=== PATIENT | female | born 1995 | race Caucasian/White ===

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

== ENCOUNTER 2017-03-31 11:28 | Emergency (ER) | payer OTHER ==
[~2017-03-31] VITALS: Ht 165.1 cm; Wt 60.0 kg
--- NOTE | 2017-03-31 11:37 | PD ---
HPI . BA/acute psychosis, possibly drug induced Chief Complaint: BA/acute psychosis, possibly drug induced Time Seen by Provider: 11:36 Travel History International Travel<30 days: No Contact w/Intl Traveler<30days: No Traveled to known affect area: No History of Present Illness HPI 22-year-old female with a past medical history of drug-induced psychosis here reporting past medical history of bipolar disorder, depression and schizophrenia. She also tells me that she's had some periods of psychosis. Patient says that she does have a history of using drugs, however she has only recently use marijuana and tries to smoking daily if she can. Apparently patient was Kurtz acted she was found running in the streets screaming and yelling. Police report that she was combative. Patient tells me that she was running looking for her boyfriend. She denies any suicide or homicidal ideation. She has no specific complaints. Apparently she initially reported some chest pain to police officers, however here in the emergency department she tells me she feels fine. PFSH Past Medical History ADHD: No Autoimmune Disease: No Blood Disorders: No Bipolar Disorder: Yes Anxiety: Yes Depression: Yes Cancer: No Cardiovascular Problems: No Developmental Delay: No Diabetes: No Diminished Hearing: No Gastrointestinal Disorders: Yes (constipation ) Genitourinary: No Headaches: No Heparin Induced Thrombocytopen: No Musculoskeletal: No Neurologic: No Psychiatric: Yes (PTSD) Reproductive: No (ovarian cyst ) Respiratory: No Immunizations Current: No Migraines: Yes Schizophrenia: Yes Seizures: No Sickle Cell Disease: No Thyroid Disease: No Ulcer: No Menopausal: No : 0 Past Surgical History Other Surgery: No Social History Alcohol Use: Yes Tobacco Use: Yes Substance Use: Yes Allergies-Medications (Allergen,Severity, Reaction): Coded Allergies: No Known Allergies (Verified , 10/24/16) Reported Meds & Prescriptions Reported Meds & Active Scripts Active Reported Gabapentin 400 Mg Cap 400 Cap PO DAILY Review of Systems General / Constitutional: No: Fever Eyes: No: Visual changes HENT: No: Headaches Cardiovascular: No: Chest Pain or Discomfort Respiratory: No: Shortness of Breath Gastrointestinal: No: Abdominal Pain Genitourinary: No: Dysuria Musculoskeletal: No: Pain Skin: No Rash Neurologic: No: Weakness Psychiatric: Positive: Mood Disorder, No: Depression Endocrine: No: Polydipsia Hematologic/Lymphatic: No: Easy Bruising Physical Exam Narrative GENERAL: AAO x 3, no acute distress, disheveled appearance SKIN: Warm and dry. No visible rashes or bruising. HEAD: Normocephalic and atraumatic. EYES: No scleral icterus. No injection or drainage. EOM intact, PERRLA ENT: No nasal drainage noted. Mucous membranes pink. Airway patent. NECK: Supple, trachea midline. No JVD. CARDIOVASCULAR: Regular rate and rhythm without murmurs, gallops, or rubs. RESPIRATORY: Breath sounds equal bilaterally. No accessory muscle use. No rhonchi or rales. GASTROINTESTINAL: Abdomen soft, non-tender, nondistended. EXTREMITIES: No cyanosis or edema. BACK: No obvious deformity. NEURO: CN II-12 intact, certified alcohol drug counselor strength normal b/l, UE and LE 5/5, no focal deficits PSYCH: AAO x 3, calm now (ativan given prior to arrival) Data Data Last Documented VS Vital Signs Date Time Temp Pulse Resp B/P Pulse Ox O2 Delivery O2 Flow Rate FiO2 03/31/17 13:26 105 18 97/53 100 Room Air 03/31/17 11:57 98.7 Orders Complete Blood Count With Diff (03/31/17 11:42) Comprehensive Metabolic Panel (03/31/17 11:42) Thyroid Stimulating Hormone (03/31/17 11:42) Urinalysis - C+S If Indicated (03/31/17 11:42) Ed Urine Pregnancytest Poc (03/31/17 11:42) Electrocardiogram (03/31/17 11:42) Psych Screen (03/31/17 11:42) Drug Screen, Random Urine (03/31/17 11:42) Alcohol (Ethanol) (03/31/17 11:42) Salicylates (Aspirin) (03/31/17 11:42) Tylenol (Acetaminophen) (03/31/17 11:42) Sodium Chlor 0.9% 1000 Ml Inj (Ns 1000 M (03/31/17 12:00) Labs Laboratory Tests Test 03/31/17 11:45 White Blood Count 8.6 TH/MM3 Red Blood Count 3.39 MIL/MM3 Hemoglobin 10.7 GM/DL Hematocrit 31.1 % Mean Corpuscular Volume 92.0 FL Mean Corpuscular Hemoglobin 31.7 PG Mean Corpuscular Hemoglobin 34.4 % Concent Red Cell Distribution Width 13.6 % Platelet Count 294 TH/MM3 Mean Platelet Volume 8.3 FL Neutrophils (%) (Auto) 81.7 % Lymphocytes (%) (Auto) 11.0 % Monocytes (%) (Auto) 7.0 % Eosinophils (%) (Auto) 0.1 % Basophils (%) (Auto) 0.2 % Neutrophils # (Auto) 7.1 TH/MM3 Lymphocytes # (Auto) 0.9 TH/MM3 Monocytes # (Auto) 0.6 TH/MM3 Eosinophils # (Auto) 0.0 TH/MM3 Basophils # (Auto) 0.0 TH/MM3 CBC Comment DIFF FINAL Differential Comment Urine Color YELLOW Urine Turbidity HAZY Urine pH 5.5 Urine Specific [place] 1.028 Urine Protein 30 mg/dL Urine Glucose (UA) NEG mg/dL Urine Ketones TRACE mg/dL Urine Occult Blood NEG Urine Nitrite NEG Urine Bilirubin NEG Urine Urobilinogen LESS THAN 2.0 MG/DL Urine Leukocyte Esterase NEG Urine RBC LESS THAN 1 /hpf Urine WBC 3 /hpf Urine Squamous Epithelial 13 /hpf Cells Urine Transitional Epithelial <1 /hpf Cells Urine Bacteria RARE /hpf Urine Hyaline Casts 8 /lpf Urine Mucus MOD /lpf Microscopic Urinalysis Comment CULT NOT INDICATED Sodium Level 137 MEQ/L Potassium Level 4.6 MEQ/L Chloride Level 105 MEQ/L Carbon Dioxide Level 23.0 MEQ/L Anion Gap 9 MEQ/L Blood Urea Nitrogen 20 MG/DL Creatinine 0.70 MG/DL Estimat Glomerular Filtration 107 ML/MIN Rate Random Glucose 80 MG/DL Calcium Level 7.9 MG/DL Total Bilirubin 0.6 MG/DL Aspartate Amino Transf 65 U/L (AST/SGOT) Alanine Aminotransferase 55 U/L (ALT/SGPT) Alkaline Phosphatase 65 U/L Total Protein 7.1 GM/DL Albumin 3.2 GM/DL Thyroid Stimulating Hormone 1.430 uIU/ML 3rd Gen Salicylates Level LESS THAN 1.7 MG/DL Urine Opiates Screen NEG Acetaminophen Level LESS THAN 2.0 MCG/ML Urine Barbiturates Screen NEG Urine Amphetamines Screen POS Urine Benzodiazepines Screen NEG Urine Cocaine Screen NEG Urine Cannabinoids Screen POS Ethyl Alcohol Level LESS THAN 3 MG/DL MDM Medical Decision Making Medical Screen Exam Complete: Yes Emergency Medical Condition: Yes Medical Record Reviewed: Yes Differential Diagnosis Acute psychosis, drug-induced mood disorder, bipolar disorder, polysubstance abuse Narrative Course 22-year-old female here under Kurtz act due to what seems to be an acute psychotic episode out in public. Exam was done and is unremarkable except for some tachycardia. IV access was obtained. Patient was placed on continuous cardiac monitoring. She was given IV fluids and labs were ordered. Labs have been reviewed. She has been medically cleared. She is awaiting psych screen. Diagnosis Primary Impression: Drug-induced mood disorder Condition: Stable Maria Luisa Hunt Mar 31, 2017 11:37
[2017-03-31 11:57] VITALS: BP 115/76; PULSE 118; RESP 15; TEMP 98.7; O2SAT 100
[2017-03-31] MEDS ORDERED: SODIUM CHLOR 0.9% 1000 ML INJ 1,000 ML IV ONE (12:00)
--- NOTE | 2017-03-31 12:06 | PD ---
Data Data Last Documented VS Vital Signs Date Time Temp Pulse Resp B/P Pulse Ox O2 Delivery O2 Flow Rate FiO2 03/31/17 11:57 115 03/31/17 11:57 98.7 15 115/76 100 Room Air Orders Complete Blood Count With Diff (03/31/17 11:42) Comprehensive Metabolic Panel (03/31/17 11:42) Thyroid Stimulating Hormone (03/31/17 11:42) Urinalysis - C+S If Indicated (03/31/17 11:42) Ed Urine Pregnancytest Poc (03/31/17 11:42) Electrocardiogram (03/31/17 11:42) Psych Screen (03/31/17 11:42) Drug Screen, Random Urine (03/31/17 11:42) Alcohol (Ethanol) (03/31/17 11:42) Salicylates (Aspirin) (03/31/17 11:42) Tylenol (Acetaminophen) (03/31/17 11:42) Sodium Chlor 0.9% 1000 Ml Inj (Ns 1000 M (03/31/17 12:00) MDM Supervised Visit with PHIL: Yes Narrative Course The history, exam, and medical decision-making in the associated mid-level provider note were completed with my assistance. I reviewed and agree with the findings presented. I attest that I had a [id number] encounter with the patient on the same day, and personally performed and documented my assessment and findings in the medical record. *My assessment and Findings: 22 year-old woman, under a Kurtz act for bizarre altered mental status. She apparently is agitated and hostile. She is a history of polysubstance abuse of multiple similar presentations for psychotic behavior treated to illicit drug use. She received 2 mg of Ativan in route. She sedate now. We'll check labs, EKG, monitor. Reassess. Lobo Xiao MD Mar 31, 2017 12:06
[2017-03-31 12:08] LABS: AUTOMATED NEUTROPHIL # 7.1 TH/MM3 (1.8-7.7); BASOPHIL % 0.2 % (0.0-2.0); EOSINOPHIL % 0.1 % (0.0-4.0); HEMATOCRIT 31.1 % (35.0-46.0); HEMO FLAGS DIFF FINAL; LYMPHOCYTE # 0.9 TH/MM3 (1.0-4.8); MEAN CORPUSCULAR HEMOGLOBIN 31.7 PG (27.0-34.0); MEAN CORPUSCULAR HGB CONC 34.4 % (32.0-36.0); NEUT % 81.7 % (16.0-70.0); PLATELET COUNT 294 TH/MM3 (150-450); RED BLOOD COUNT 3.39 MIL/MM3 (4.00-5.30); RED CELL DISTRIBUTION WIDTH 13.6 % (11.6-17.2); WHITE BLOOD COUNT 8.6 TH/MM3 (4.0-11.0)
[2017-03-31 12:21] LABS: BACTERIA, URINE RARE /hpf; BLOOD, URINE NEG (NEG); GLUCOSE,URINE NEG (NEG); HYALINE CAST, URINE 8 /lpf (RARE); KETONE, URINE TRACE mg/dL (NEG); MUCUS URINE MOD /lpf (OCC); NITRITE,URINE NEG (NEG); PH, URINE 5.5 (5.0-8.5); SQUAMOUS EPITHELIAL CELL URINE 13 /hpf (0-5); TRANSITIONAL EPI CELLS, URINE <1 /hpf; URINE COLOR YELLOW (YELLW/STRAW)
[2017-03-31 12:22] LABS: COMMENT (UR) CULT NOT INDICATED; CULTURE IF INDICATED CULT NOT INDICATED
[2017-03-31 12:25] LABS: AMPHETAMINE, URINE POS (NEG); BARBITURATES, URINE NEG (NEG); COCAINE, URINE NEG (NEG)
[2017-03-31 12:35] LABS: ALKALINE PHOSPHATASE 65 U/L (45-117); TOTAL BILIRUBIN ADULT 0.6 MG/DL (0.2-1.0)
[2017-03-31 12:36] LABS: ALT (GPT) 55 U/L (9-42); ANION GAP 9 MEQ/L (5-15); AST (GOT) 65 U/L (16-38); BLOOD UREA NITROGEN 20 MG/DL (7-18); CHLORIDE 105 MEQ/L (98-107); GLOMERULAR FILTRATION RATE 107 ML/MIN (>89); SODIUM (NA) 137 MEQ/L (136-145)
[2017-03-31 12:46] LABS: ACETAMINOPHEN LESS THAN 2.0 MCG/ML (10.0-30.0); POTASSIUM 4.6 MEQ/L (3.5-5.1)
[2017-03-31 13:26] VITALS: BP 97/53; PULSE 105; RESP 18; O2SAT 100
[2017-03-31 14:17] VITALS: BP 90/55; PULSE 96; RESP 20; O2SAT 96
[2017-03-31 16:58] VITALS: BP 104/67; PULSE 88; RESP 16; O2SAT 99
[2017-03-31 18:01] VITALS: BP 98/56; PULSE 89; RESP 18
[2017-03-31 23:20] VITALS: BP 90/50; PULSE 16; PULSE 76; RESP 18
[2017-04-01 02:10] VITALS: BP 90/50; PULSE 76; RESP 18; TEMP 98.8; O2SAT 95
[2017-04-01 05:50] VITALS: BP 89/50; PULSE 81; RESP 16; TEMP 98.4; O2SAT 99
[2017-04-01 09:09] VITALS: BP 89/50; TEMP 98.4
--- NOTE | 2017-04-01 17:21 | EKG ---
Date Performed: 03/31/2017 Time Performed: 11:41:20 PTAGE: 22 years EKG: SINUS TACHYCARDIA ABNORMAL RHYTHM ECG Since PREVIOUS TRACING , no significant change noted PREVIOUS TRACIN10/24/2016 18.38 DOCTOR: Sixto Monroe Interpretating Date/Time 04/01/2017 17:18:47
== END 2017-04-01 09:18 ==
LOC: NEPE 11:28 → NEPJ 04-01 09:18
DX: Z02.89 Encounter for other administrative examinations (principal); F19.94 Other psychoactive substance use, unspecified with psychoactive substance-induced mood disorder; F10.10 Alcohol abuse, uncomplicated; F17.290 Nicotine dependence, other tobacco product, uncomplicated; R94.31 Abnormal electrocardiogram [ECG] [EKG]
CPT/HCPCS: 80053; 80307; 81001; 84443; 84703; 85025; 93005; 96360; 99285; J7030

== ENCOUNTER 2017-05-20 03:57 | Emergency (ER) | payer OTHER ==
[~2017-05-20] VITALS: Ht 162.6 cm; Wt 60.0 kg
[2017-05-20 04:15] VITALS: BP 135/68; PULSE 105; RESP 16; TEMP 98.5; O2SAT 100
--- NOTE | 2017-05-20 04:37 | PD ---
HPI Chief Complaint: Alcohol/Drug Intoxication Time Seen by Provider: 04:16 Travel History International Travel<30 days: No Contact w/Intl Traveler<30days: No Traveled to known affect area: No History of Present Illness HPI 22-year-old female with history of methamphetamine use, presents to the emergency department under a [place] act reevaluation. Patient was running through a dark street. She apparently did not answer the police officers questions appropriately in [place]. They brought her here under Wilson act. Patient states she does not know why she is here. She does not want to be here. She does report methamphetamine use today and every day. She denies any other acute medical needs. [facility] Past Medical History Medical History: Denies Significant Hx ADHD: No Autoimmune Disease: No Blood Disorders: No Bipolar Disorder: Yes Weight (Kg): 3 Anxiety: Yes Depression: Yes Cancer: No Cardiovascular Problems: No Developmental Delay: No Diabetes: No Diminished Hearing: No Gastrointestinal Disorders: Yes (constipation ) Genitourinary: No Headaches: No Heparin Induced Thrombocytopen: No Musculoskeletal: No Psychiatric: Yes (PTSD) Reproductive: No (ovarian cyst ) Respiratory: No Immunizations Current: No Migraines: Yes Schizophrenia: Yes Seizures: No Sickle Cell Disease: No Thyroid Disease: No Ulcer: No Tetanus Vaccination: < 5 Years Influenza Vaccination: No ?: Unknown Menopausal: No : 0 Para: 0 Past Surgical History Surgical History: No Previous Surgery Other Surgery: No Social History Alcohol Use: Yes (pt denies) Tobacco Use: Yes Substance Use: Yes (Meth, Marijuana, IVDA) Allergies-Medications (Allergen,Severity, Reaction): Coded Allergies: No Known Allergies (Verified , 10/24/16) Reported Meds & Prescriptions Reported Meds & Active Scripts Active No Active Prescriptions or Reported Medications Review of Systems Except as stated in HPI: all other systems reviewed are Neg Physical Exam Narrative GENERAL: Thin female patient, ambulatory, with bizarre affect, in no acute distress SKIN: Focused skin assessment warm/dry. Full scabbed lesions over the face and upper extremities. HEAD: Normocephalic. EYES: No scleral icterus. No injection or drainage. NECK: Supple, trachea midline. No JVD or lymphadenopathy. CARDIOVASCULAR: Elevated rate and rhythm without murmurs, gallops, or rubs. RESPIRATORY: Breath sounds equal bilaterally. No accessory muscle use. GASTROINTESTINAL: Abdomen soft, non-tender, nondistended. MUSCULOSKELETAL: No cyanosis, or edema. BACK: Nontender without obvious deformity. No CVA tenderness. Data Data Last Documented VS Vital Signs Date Time Temp Pulse Resp B/P (MAP) Pulse Ox O2 Delivery O2 Flow Rate FiO2 05/20/17 04:15 98.5 105 16 135/68 (90) 100 MDM Medical Decision Making Medical Screen Exam Complete: Yes Emergency Medical Condition: Yes Medical Record Reviewed: Yes Differential Diagnosis Substance abuse versus mood disorder versus personality disorder versus adjustment reaction disorder Narrative Course 22 year-old female presents to the emergency department under a Wilson act for evaluation. Patient appears without distress. She demonstrates behavior consistent with methamphetamine use. She'll be monitored with no acute changes , she'll be discharged. Patient's mother has been reached and she will not come and pick her up at this time. [id number] patient remained stable. She no longer wants to be here. She is ambulatory throughout the [facility] department. She is answering our questions appropriately. Patient is provided a bus pass and discharged at this time. Diagnosis Primary Impression: Polysubstance abuse Referrals: [facility] (Out patient) Additional Instructions: Stop using illegal drugs Seek assistance through a detox facility such as [facility] Return immediately to the emergency department with any acute worsening of symptoms Med/Other Pt SpecificInfo: No Change to Meds Scripts No Active Prescriptions or Reported Meds Disposition: 01 DISCHARGE HOME Condition: Stable BeeAmber mourapaloma RENDON May 20, 2017 04:37
== END 2017-05-20 06:08 | disposition home or self-care (01) ==
LOC: NEPD 03:57
DX: F19.10 Other psychoactive substance abuse, uncomplicated (principal)
CPT/HCPCS: 99281

== ENCOUNTER 2017-07-08 16:48 | Emergency (ER) | payer OTHER ==
[~2017-07-08] VITALS: Ht 157.5 cm; Wt 48.0 kg
[2017-07-08 17:01] VITALS: BP 134/87; PULSE 127; RESP 18; TEMP 99; O2SAT 98
--- NOTE | 2017-07-08 17:21 | PD ---
HPI Chief Complaint: psychiatric evaluation Time Seen by Provider: 17:13 Travel History International Travel<30 days: No Contact w/Intl Traveler<30days: No History of Present Illness HPI 22-year-old female presents to the emergency Department under Kurtz act by [place] [employer] for psychiatric evaluation. According to the Kurtz act, the patient has been making suicidal statements, stating she wants to burn down the house to be with her boyfriend who recently. The patient denies making any suicidal statements. She states she is not suicidal or homicidal. The patient is alert and oriented and answers all questions appropriately. She denies any alcohol or illicit drug use. She smokes half pack of cigarettes daily. She reports no chronic medical problems and takes no prescribed medications. [facility] Past Medical History ADHD: No Autoimmune Disease: No Blood Disorders: No Bipolar Disorder: Yes Anxiety: Yes Depression: Yes Cancer: No Cardiovascular Problems: No Developmental Delay: No Diabetes: No Diminished Hearing: No Gastrointestinal Disorders: Yes (constipation ) Genitourinary: No Headaches: No Heparin Induced Thrombocytopen: No Musculoskeletal: No Psychiatric: Yes (PTSD) Reproductive: No (ovarian cyst ) Respiratory: No Immunizations Current: No Migraines: Yes Schizophrenia: Yes Seizures: No Sickle Cell Disease: No Thyroid Disease: No Ulcer: No Menopausal: No : 0 Para: 0 Past Surgical History Other Surgery: No Social History Alcohol Use: Yes (pt denies) Tobacco Use: Yes Substance Use: Yes (Meth, Marijuana, IVDA) Allergies-Medications (Allergen,Severity, Reaction): Coded Allergies: No Known Allergies (Verified Adverse Reaction, Unknown, 07/08/17) Reported Meds & Prescriptions Reported Meds & Active Scripts Active No Active Prescriptions or Reported Medications Review of Systems Except as stated in HPI: all other systems reviewed are Neg Physical Exam Narrative GENERAL: Well-nourished, well-developed female patient, ambulatory and in no acute distress. Afebrile. Patient is alert and oriented to person, place, time. SKIN: Focused skin assessment warm/dry. HEAD: Normocephalic. Atraumatic. EYES: No scleral icterus. No injection or drainage. NECK: Supple, trachea midline. No JVD or lymphadenopathy. CARDIOVASCULAR: Regular rate and rhythm without murmurs, gallops, or rubs. RESPIRATORY: Breath sounds equal bilaterally. No accessory muscle use. Lung sounds are clear to auscultation. GASTROINTESTINAL: Abdomen soft, non-tender, nondistended. MUSCULOSKELETAL: No cyanosis, or edema. PSYCHIATRIC: No delusional thought processes. No hallucinations. Data Data Last Documented VS Vital Signs Date Time Temp Pulse Resp B/P (MAP) Pulse Ox O2 Delivery O2 Flow Rate FiO2 07/08/17 17:01 99.0 127 18 134/87 (103) 98 Room Air Orders Orders Complete Blood Count With Diff (07/08/17 17:14) Comprehensive Metabolic Panel (07/08/17 17:14) Urinalysis - C+S If Indicated (07/08/17 17:14) Ed Urine Pregnancytest Poc (07/08/17 17:14) Psych Screen (07/08/17 17:14) Drug Screen, Random Urine (07/08/17 17:14) Alcohol (Ethanol) (07/08/17 17:14) Urine Culture (07/08/17 17:30) Nitrofurantoin Monohyd Macrocr (Macrobid (07/08/17 19:00) Labs Laboratory Tests Test 07/08/17 17:30 07/08/17 17:45 Urine Color YELLOW Urine Turbidity CLOUDY Urine pH 5.5 Urine Specific [place] 1.026 Urine Protein TRACE mg/dL Urine Glucose (UA) NEG mg/dL Urine Ketones 10 mg/dL Urine Occult Blood NEG Urine Nitrite NEG Urine Bilirubin NEG Urine Urobilinogen LESS THAN 2.0 MG/DL Urine Leukocyte Esterase MOD Urine RBC 3 /hpf Urine WBC 16 /hpf Urine Amorphous Sediment MOD Urine Bacteria FEW /hpf Urine Mucus FEW /lpf Microscopic Urinalysis Comment CULTURE INDICATED Urine Opiates Screen NEG Urine Barbiturates Screen NEG Urine Amphetamines Screen POS Urine Benzodiazepines Screen POS Urine Cocaine Screen NEG Urine Cannabinoids Screen POS White Blood Count 11.5 TH/MM3 Red Blood Count 3.51 MIL/MM3 Hemoglobin 10.7 GM/DL Hematocrit 31.2 % Mean Corpuscular Volume 89.0 FL Mean Corpuscular Hemoglobin 30.5 PG Mean Corpuscular Hemoglobin Concent 34.2 % Red Cell Distribution Width 14.0 % Platelet Count 374 TH/MM3 Mean Platelet Volume 7.5 FL Neutrophils (%) (Auto) 73.7 % Lymphocytes (%) (Auto) 15.3 % Monocytes (%) (Auto) 10.1 % Eosinophils (%) (Auto) 0.6 % Basophils (%) (Auto) 0.3 % Neutrophils # (Auto) 8.4 TH/MM3 Lymphocytes # (Auto) 1.8 TH/MM3 Monocytes # (Auto) 1.2 TH/MM3 Eosinophils # (Auto) 0.1 TH/MM3 Basophils # (Auto) 0.0 TH/MM3 CBC Comment DIFF FINAL Differential Comment Blood Urea Nitrogen 20 MG/DL Creatinine 0.75 MG/DL Random Glucose 114 MG/DL Total Protein 7.7 GM/DL Albumin 3.4 GM/DL Calcium Level 8.6 MG/DL Alkaline Phosphatase 77 U/L Aspartate Amino Transf (AST/SGOT) 29 U/L Alanine Aminotransferase (ALT/SGPT) 32 U/L Total Bilirubin 0.7 MG/DL Sodium Level 138 MEQ/L Potassium Level 4.0 MEQ/L Chloride Level 102 MEQ/L Carbon Dioxide Level 27.3 MEQ/L Anion Gap 9 MEQ/L Estimat Glomerular Filtration Rate 99 ML/MIN Ethyl Alcohol Level LESS THAN 3 MG/DL MDM Medical Decision Making Medical Screen Exam Complete: Yes Emergency Medical Condition: Yes Medical Record Reviewed: Yes Differential Diagnosis Substance abuse versus depression versus anxiety versus bipolar disorder Narrative Course 22-year-old female presents to the emergency Department a Kurtz act by local police. CBC, CMP, UA, urine drug screen, urine test are ordered and pending. CBC shows leukocytosis of 11.5. CMP shows no acute abnormality. UA shows moderate leukocyte esterase, 16 WBCs. UDS is positive for amphetamines, benzodiazepines, cannabinoids. Urine test is negative. Patient is given Macrobid 100 mg capsule for UTI. Patient is medically for psychiatric screening and disposition. Mental health screening discussed with the patient. Psychiatric screen ordered. Diagnosis Primary Impression: Polysubstance abuse Additional Impression: Urinary tract infection Qualified Codes: N30.00 - Acute cystitis without hematuria Scripts No Active Prescriptions or Reported Meds Condition: Stable Radha Frausto JUSTICE Jul 08, 2017 17:21
[2017-07-08 18:09] LABS: AUTOMATED NEUTROPHIL # 8.4 TH/MM3 (1.8-7.7); BASOPHIL % 0.3 % (0.0-2.0); EOSINOPHIL # 0.1 TH/MM3 (0-0.4); EOSINOPHIL % 0.6 % (0.0-4.0); HEMATOCRIT 31.2 % (35.0-46.0); HEMO FLAGS DIFF FINAL; LYMPH % 15.3 % (9.0-44.0); LYMPHOCYTE # 1.8 TH/MM3 (1.0-4.8); MEAN CORPUSCULAR HEMOGLOBIN 30.5 PG (27.0-34.0); MEAN CORPUSCULAR HGB CONC 34.2 % (32.0-36.0); MONO % 10.1 % (0.0-8.0); NEUT % 73.7 % (16.0-70.0); PLATELET COUNT 374 TH/MM3 (150-450); RED BLOOD COUNT 3.51 MIL/MM3 (4.00-5.30); WHITE BLOOD COUNT 11.5 TH/MM3 (4.0-11.0)
[2017-07-08 18:23] LABS: ANION GAP 9 MEQ/L (5-15); AST (GOT) 29 U/L (16-38); BICARBONATE 27.3 MEQ/L (21.0-32.0); BLOOD UREA NITROGEN 20 MG/DL (7-18); CHLORIDE 102 MEQ/L (98-107); GLOMERULAR FILTRATION RATE 99 ML/MIN (>89); SODIUM (NA) 138 MEQ/L (136-145)
[2017-07-08 18:24] LABS: ALT (GPT) 32 U/L (9-42)
[2017-07-08 18:25] LABS: ALCOHOL LESS THAN 3 MG/DL (0-5)
[2017-07-08 18:26] LABS: ALKALINE PHOSPHATASE 77 U/L (45-117); TOTAL BILIRUBIN ADULT 0.7 MG/DL (0.2-1.0)
[2017-07-08 18:31] LABS: BACTERIA, URINE FEW /hpf; BLOOD, URINE NEG (NEG); GLUCOSE,URINE NEG (NEG); KETONE, URINE 10 mg/dL (NEG); MUCUS URINE FEW /lpf (OCC); NITRITE,URINE NEG (NEG); PH, URINE 5.5 (5.0-8.5); URINE COLOR YELLOW (YELLW/STRAW)
[2017-07-08 18:32] LABS: COMMENT (UR) CULTURE INDICATED; CULTURE IF INDICATED CULTURE INDICATED
[2017-07-08] MEDS ORDERED: NITROFURANTOIN MONOHYD MACROCR 100 MG CAP PO ONE (19:00)
[2017-07-09 08:08] VITALS: BP 105/63; PULSE 100; RESP 18; O2SAT 99
[2017-07-09] MEDS ORDERED: MACR100C2 PO (18:28)
== END 2017-07-09 16:32 ==
LOC: NEPE 16:48 → NEPJ 07-09 16:32
DX: F19.10 Other psychoactive substance abuse, uncomplicated (principal); N30.00 Acute cystitis without hematuria; B96.89 Other specified bacterial agents as the cause of diseases classified elsewhere; F17.210 Nicotine dependence, cigarettes, uncomplicated; F20.9 Schizophrenia, unspecified
CPT/HCPCS: 80053; 80307; 81001; 84703; 85025; 87086; 99285

== ENCOUNTER 2017-07-22 18:31 | Inpatient (IN) | payer OTHER ==
[~2017-07-22] VITALS: Ht 157.5 cm; Wt 51.8 kg
[~2017-07-22 18:31] MED LIST changes: -GABA400C5 PO; +MACR100C2 PO
[2017-07-22 18:32] VITALS: BP 103/55; PULSE 102; RESP 16; TEMP 99; O2SAT 100
[2017-07-22] MEDS ORDERED: SODIUM CHLOR 0.9% 1000 ML INJ 1,000 ML IV SCH (19:35)
[2017-07-22] MEDS ORDERED: LIDOCAINE VISCOUS 2% SOLN 15 ML UDC PO ONE (19:45)
[2017-07-22] MEDS ORDERED: SODIUM CHLORIDE 0.9% FLUSH 10 ML FLUSH IV FLUSH PRN (19:45)
[2017-07-22] MEDS ORDERED: DICYCLOMINE HCL 20 MG/2 ML VIAL IM ONE (19:45)
[2017-07-22] MEDS ORDERED: ALUMINUM/MAGNESIUM/SIMETH 30 ML CUP PO ONE (19:45)
[2017-07-22] MEDS ORDERED: FAMOTIDINE 20 MG/2 ML VIAL IV PUSH ONE (19:45)
--- NOTE | 2017-07-22 20:43 | PD ---
HPI Chief Complaint: Abdominal Pain Time Seen by Provider: 19:20 Travel History International Travel<30 days: No Contact w/Intl Traveler<30days: No Traveled to known affect area: No History of Present Illness HPI 22 yo female complains of abdominal pain. Associated symptoms included vaginal bleeding/menometrorrhagia. Nausea reported. Decreased appetite reported. subjective fever reported. Duration about 2 days. Onset gradual. Timing constant. Pain is worse with palpation. History is provided mainly by the patient's mother. . LMP 5 days prior. PMH includes IVDA, depression, bipolar , schizophrenia, PTSD and hx STDs. PFSH Past Medical History ADHD: No Autoimmune Disease: No Blood Disorders: No Bipolar Disorder: Yes Anxiety: Yes Depression: Yes Cancer: No Cardiovascular Problems: No Developmental Delay: No Diabetes: No Diminished Hearing: No Gastrointestinal Disorders: Yes (constipation ) Genitourinary: No Headaches: No Heparin Induced Thrombocytopen: No Musculoskeletal: No Psychiatric: Yes (PTSD) Respiratory: No Immunizations Current: No Migraines: Yes Schizophrenia: Yes Seizures: No Sickle Cell Disease: No Thyroid Disease: No Ulcer: No ?: Not LMP: 07/17/17 Menopausal: No : 1 Para: 0 Miscarriage: 1 Past Surgical History Other Surgery: No Social History Alcohol Use: No (pt denies) Tobacco Use: Yes Substance Use: Yes (Meth, Marijuana, IVDA) Allergies-Medications (Allergen,Severity, Reaction): Coded Allergies: No Known Allergies (Verified Allergy, Unknown, 07/22/17) Reported Meds & Prescriptions Reported Meds & Active Scripts Active Macrobid (Nitrofurantoin Monohydrate Macrocrystals) 100 Mg Capsule 100 Mg PO BID 7 Days Review of Systems Except as stated in HPI: all other systems reviewed are Neg General / Constitutional: Positive: Fever Gastrointestinal: Positive: Nausea, Abdominal Pain Physical Exam Narrative GENERAL: 22 F WNWD, NAD, pleasant, speaking full sentences : Large/copious purulent discharge in vault. + Adnexal tenderness bilaterally. SKIN: Warm and dry. HEAD: Atraumatic. Normocephalic. EYES: Pupils equal and round. No scleral icterus. No injection or drainage. ENT: No nasal bleeding or discharge. Mucous membranes pink and moist. NECK: Trachea midline. No JVD. CARDIOVASCULAR: Regular rate and rhythm. RESPIRATORY: No accessory muscle use. Clear to auscultation. Breath sounds equal bilaterally. GASTROINTESTINAL: Soft. Diffuse non-specific TTP. MUSCULOSKELETAL: Extremities without clubbing, cyanosis, or edema. No obvious deformities. NEUROLOGICAL: Awake and alert. No obvious cranial nerve deficits. Motor grossly within normal limits. Five out of 5 muscle strength in the arms and legs. Normal speech. PSYCHIATRIC: Appropriate mood and affect; insight and judgment normal. Data Data Last Documented VS Vital Signs Date Time Temp Pulse Resp B/P (MAP) Pulse Ox O2 Delivery O2 Flow Rate FiO2 07/22/17 23:46 97 Room Air 07/22/17 18:32 99.0 102 16 VS Vital Signs Date Time Temp Pulse Resp B/P (MAP) Pulse Ox O2 Delivery O2 Flow Rate FiO2 07/22/17 23:46 97 Room Air 07/22/17 18:32 99.0 102 16 103/55 (71) 100 Orders Orders Complete Blood Count With Diff (07/22/17 19:35) Comprehensive Metabolic Panel (07/22/17 19:35) Lipase (07/22/17 19:35) Lactic Acid (07/22/17 19:35) Urinalysis - C+S If Indicated (07/22/17 19:35) Ct Abd/Pel W Iv Contrast(Rout) (07/22/17 19:35) Iv Access Insert/Monitor (07/22/17 19:35) Ecg Monitoring (07/22/17 19:35) Oximetry (07/22/17 19:35) Sodium Chlor 0.9% 1000 Ml Inj (Ns 1000 M (07/22/17 19:35) Sodium Chloride 0.9% Flush (Ns Flush) (07/22/17 19:45) Ed Urine Pregnancytest Poc (07/22/17 19:35) Dicyclomine Inj (Bentyl Inj) (07/22/17 19:45) Al-Mag Hy-Si 40-40-4 Mg/Ml Liq (Mag-Al P (07/22/17 19:45) Lidocaine 2% Viscous (Xylocaine 2% Visco (07/22/17 19:45) Famotidine Inj (Pepcid Inj) (07/22/17 19:45) Oral Contrast - Adult (07/22/17 19:43) Diatrizoate Liq ( Gastroview Liq) (07/22/17 20:50) Urine Culture (07/22/17 20:45) Ceftriaxone Inj (Rocephin Inj) (07/22/17 21:45) Iohexol 350 Inj (Omnipaque 350 Inj) (07/22/17 22:29) Gc And Chlamydia Pcr (07/22/17 22:54) Wet Prep Profile (07/22/17 22:54) Doxycycline Inj (Vibramycin Inj) (07/22/17 23:15) Cefoxitin Inj (Mefoxin Inj) (07/22/17 23:30) Us Pelvis Comp Rn Night/Non-Preg (07/23/17 ) Morphine Inj (Morphine Inj) (07/23/17 00:45) Admit Order (Ed Use Only) (07/23/17 ) Vital Signs (Adult) Q4H (07/23/17 01:01) Diet Npo (07/23/17 Breakfast) Activity Oob With Assistance (07/23/17 01:01) Labs Laboratory Tests Test 07/22/17 20:24 07/22/17 20:45 07/22/17 23:15 White Blood Count 10.0 TH/MM3 Red Blood Count 3.30 MIL/MM3 Hemoglobin 9.6 GM/DL Hematocrit 29.7 % Mean Corpuscular Volume 90.0 FL Mean Corpuscular Hemoglobin 29.2 PG Mean Corpuscular Hemoglobin Concent 32.4 % Red Cell Distribution Width 15.4 % Platelet Count 361 TH/MM3 Mean Platelet Volume 8.0 FL Neutrophils (%) (Auto) 65.7 % Lymphocytes (%) (Auto) 25.3 % Monocytes (%) (Auto) 7.2 % Eosinophils (%) (Auto) 1.5 % Basophils (%) (Auto) 0.3 % Neutrophils # (Auto) 6.6 TH/MM3 Lymphocytes # (Auto) 2.5 TH/MM3 Monocytes # (Auto) 0.7 TH/MM3 Eosinophils # (Auto) 0.1 TH/MM3 Basophils # (Auto) 0.0 TH/MM3 CBC Comment DIFF FINAL Differential Comment Blood Urea Nitrogen 8 MG/DL Creatinine 0.47 MG/DL Random Glucose 89 MG/DL Total Protein 6.2 GM/DL Albumin 2.5 GM/DL Calcium Level 7.7 MG/DL Alkaline Phosphatase 70 U/L Aspartate Amino Transf (AST/SGOT) 19 U/L Alanine Aminotransferase (ALT/SGPT) 26 U/L Total Bilirubin 0.3 MG/DL Sodium Level 138 MEQ/L Potassium Level 3.4 MEQ/L Chloride Level 104 MEQ/L Carbon Dioxide Level 27.4 MEQ/L Anion Gap 7 MEQ/L Estimat Glomerular Filtration Rate 169 ML/MIN Lactic Acid Level 2.3 mmol/L Lipase 133 U/L Urine Color YELLOW Urine Turbidity HAZY Urine pH 6.0 Urine Specific [place] 1.036 Urine Protein 30 mg/dL Urine Glucose (UA) NEG mg/dL Urine Ketones NEG mg/dL Urine Occult Blood MOD Urine Nitrite NEG Urine Bilirubin NEG Urine Urobilinogen 4.0 MG/DL Urine Leukocyte Esterase LARGE Urine RBC 5 /hpf Urine WBC 96 /hpf Urine Squamous Epithelial Cells 15 /hpf Urine Bacteria FEW /hpf Urine Mucus MANY /lpf Microscopic Urinalysis Comment CULTURE INDICATED Clue Cells (Wet Prep) NONE SEEN Vaginal Trichomonas (Wet Prep) NONE SEEN Vaginal Yeast (Wet Prep) NONE SEEN MDM Medical Decision Making Medical Screen Exam Complete: Yes Emergency Medical Condition: Yes Medical Record Reviewed: Yes Differential Diagnosis Gastritis, pancreatitis, appendicitis, acute cholecystitis, ascending cholangitis, AAA, perforated viscous, mesenteric ischemia, hepatitis, cystitis, hydronephrosis/hydroureter/nephroureter calculus, mesenteric adenitis, biliary colic Narrative Course CBC & BMP Diagram 07/22/17 20:24 Total Protein 6.2 L, Albumin 2.5 L, Calcium Level 7.7 L, Alkaline Phosphatase 70 , Aspartate Amino Transf (AST/SGOT) 19, Alanine Aminotransferase (ALT/SGPT) 26, Total Bilirubin 0.3 UA: pyuria present CT: likely TOA 3cm Cefoxitin and doxycycline started in ER. Morphine ordered to help pt participate with pelvic sono. d/w Dr Bruce for gynecology service who has agreed to admit the patient Critical Care Narrative Aggregate critical care time was 35 minutes. Time to perform other separately billable procedures was not included in the critical care time. My time did not include minutes spent treating any other patients simultaneously or on activities that did not directly contribute to the patient's treatment. The services I provided to this patient were to treat and/or prevent clinically significant deterioration that could result in: Sepsis, septic shock, permanent disability I provided critical care services requiring my management, as noted below: Chart data review, documentation time, medication orders and management, vital sign assessments/reviewing monitor data, ordering and reviewing lab tests, ordering and interpreting/reviewing x-rays and diagnostic studies, care of the patient and discussion of the patient with the admitting physicians. Diagnosis Primary Impression: TOA (tubo-ovarian abscess) Admitting Information Admitting Physician Requests: Admit Ace Raymundo MD Jul 22, 2017 20:43
[2017-07-22] MEDS ORDERED: DIATRIZOATE MEGLUM/DIATRIZOATE SOD 9 ML CUP ONE (20:50)
[2017-07-22 21:05] LABS: AUTOMATED NEUTROPHIL # 6.6 TH/MM3 (1.8-7.7); BASOPHIL % 0.3 % (0.0-2.0); EOSINOPHIL # 0.1 TH/MM3 (0-0.4); EOSINOPHIL % 1.5 % (0.0-4.0); HEMATOCRIT 29.7 % (35.0-46.0); HEMO FLAGS DIFF FINAL; LYMPH % 25.3 % (9.0-44.0); LYMPHOCYTE # 2.5 TH/MM3 (1.0-4.8); MEAN CORPUSCULAR HEMOGLOBIN 29.2 PG (27.0-34.0); MEAN CORPUSCULAR HGB CONC 32.4 % (32.0-36.0); MONO % 7.2 % (0.0-8.0); NEUT % 65.7 % (16.0-70.0); PLATELET COUNT 361 TH/MM3 (150-450); RED CELL DISTRIBUTION WIDTH 15.4 % (11.6-17.2)
[2017-07-22 21:14] LABS: BACTERIA, URINE FEW /hpf; BLOOD, URINE MOD (NEG); COMMENT (UR) CULTURE INDICATED; CULTURE IF INDICATED CULTURE INDICATED; GLUCOSE,URINE NEG (NEG); KETONE, URINE NEG (NEG); MUCUS URINE MANY /lpf (OCC); NITRITE,URINE NEG (NEG); SQUAMOUS EPITHELIAL CELL URINE 15 /hpf (0-5); URINE COLOR YELLOW (YELLW/STRAW)
[2017-07-22 21:33] LABS: ANION GAP 7 MEQ/L (5-15); AST (GOT) 19 U/L (16-38); BICARBONATE 27.4 MEQ/L (21.0-32.0); BLOOD UREA NITROGEN 8 MG/DL (7-18); CHLORIDE 104 MEQ/L (98-107); GLOMERULAR FILTRATION RATE 169 ML/MIN (>89); POTASSIUM 3.4 MEQ/L (3.5-5.1); SODIUM (NA) 138 MEQ/L (136-145)
[2017-07-22 21:37] LABS: ALKALINE PHOSPHATASE 70 U/L (45-117); ALT (GPT) 26 U/L (9-42); TOTAL BILIRUBIN ADULT 0.3 MG/DL (0.2-1.0)
[2017-07-22] MEDS ORDERED: cefTRIAXone INJ 1,000 MG in SODIUM CHLORIDE 0.9% INJ 100 ML IV ONE (21:45)
[2017-07-22] MEDS ORDERED: IOHEXOL 350 MG/ML 10 ML VIAL (for RAD DIAG) IVCONTRAST ONE (22:29)
--- NOTE | 2017-07-22 22:39 | RADRPT ---
EXAM DATE/TIME: 07/22/2017 22:22 [facility] COMPARISON: No previous studies available for comparison. INDICATIONS : Low abdominal pain. IV CONTRAST: 75 cc Omnipaque 350 (iohexol) IV ORAL CONTRAST: Prescribed oral contrast ingested. RADIATION DOSE: 4.70 CTDIvol (mGy) MEDICAL HISTORY : None SURGICAL HISTORY : None. ENCOUNTER: Initial ACUITY: 1 day PAIN SCALE: 10/10 LOCATION: abdomen TECHNIQUE: Volumetric scanning of the abdomen and pelvis was performed. Using automated exposure control and ad justment of the mA and/or kV according to patient size, radiation dose was kept as low as reasonably achievable to obtain optimal diagnostic quality images. DICOM format image data is available electro nically for review and comparison. FINDINGS: L. fairly extensive edematous or inflammatory changes within the pelvis. This worse on the right side . Enhancing, somewhat tubular structure on the right suggests a hydrosalpinx or hydrosalpinx. There i s also a complex left adnexal mass measuring up to about 3 cm. Findings are suspicious for pelvic inf lammatory disease. Lung bases clear except minimal dependent atelectasis. No acute findings in the liver, spleen, adrena ls, kidneys or pancreas. No bowel obstruction. No free air. CONCLUSION: 1. Inflammatory or edematous changes in the pelvis with possible hydrosalpinx or pyosalpinx on the ri ght and bilateral adnexal masses measuring up to about 3 cm in diameter. Primary differential diagnos is is pelvic inflammatory disease. Anthony Rivera MD on July 22, 2017 at 22:33 Board Certified Radiologist. This report was verified electronically.
[2017-07-22] MEDS ORDERED: DOXYCYCLINE INJ 200 MG in SODIUM CHLOR 0.9% 250 ML INJ 250 ML IV ONE (23:15)
[2017-07-22] MEDS ORDERED: ceFOXitin INJ 2 GM in SODIUM CHLORIDE 0.9% INJ 100 ML IV ONE (23:30)
[2017-07-22 23:46] VITALS: O2SAT 97
[2017-07-23] VITALS (8 sets, daily range): BP systolic 80–104; BP diastolic 49–69; PULSE 82–102; RESP 16–18; TEMP 96.8–99.9; O2SAT 97–100
[2017-07-23] MEDS ORDERED: MORPHINE SULFATE 8 MG/ML INJ IV PUSH ONE (00:45)
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
[2017-07-23 02:20] LABS: CHLAMYDIA PCR NOT DETECTED (NOT DETECT); NEISSERIA PCR DETECTED (NOT DETECT)
[2017-07-23] MEDS ORDERED: ONDANSETRON HCL 4 MG/2 ML VIAL IV PUSH PRN (03:15)
[2017-07-23] MEDS ORDERED: IBUPROFEN 600 MG TAB PO PRN (03:15)
[2017-07-23] MEDS ORDERED: SODIUM CHLORIDE 0.9% FLUSH 5 ML FLUSH IV FLUSH PRN (03:15)
[2017-07-23] MEDS: ACETAMINOPHEN/HYDROcodone 325 MG/5 MG TAB PO PRN ×2 (03:53→18:31)
[2017-07-23] MEDS: LACTATED RINGER'S 1000 ML INJ 1,000 ML IV SCH ×2 (03:54→19:55)
[2017-07-23] MEDS: CLINDAMYCIN 900 MG PREMIX 50 ML IV SCH ×3 (05:17→19:53)
[2017-07-23] MEDS: GENTAMICIN IV SCH (06:12)
[2017-07-23] MEDS: SODIUM CHLORIDE 0.9% IV SCH (06:12)
--- NOTE | 2017-07-23 07:20 | MB ---
cc: ELEAZAR BOSWELL MD DATE OF CONSULTATION 07/22/2017 CHIEF COMPLAINT Abdominal pain and left tubo-ovarian abscess. HISTORY OF PRESENT ILLNESS The patient was examined at bedside with her mother present in the room. She complains of abdominal pain for two to three days with gradual onset, but worsening to a level of 10/10. The patient is a 1, para 0 with irregular menses and currently menstruating. The patient denies any sexual activity since lasting screened for STI's. She has been treated repeatedly for urinary tract infections in the past several months, but the symptoms seem to persist. A CT of the pelvis indicates that she has a tubo-ovarian abscess on the right side with bilateral adnexal masses measuring up to 3 cm. On the right, there appears to be a pyosalpinx measuring 3 cm in length. This was confirmed by ultrasound. The patient is exquisitely tender on pelvic exam. There is gemini pus in the vagina coming from the cervical os. PAST MEDICAL HISTORY Significant for: 1. Bipolar disorder and depression with PTSD 2. 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 3. She denies any previous addiction to opioids or benzodiazepines PAST SURGICAL HISTORY The patient is no previous history, but did have one spontaneous miscarriage. MEDICATIONS The patient uses no regular maintenance medication. REVIEW OF SYSTEMS Positive only for constipation. PHYSICAL EXAM GENERAL: The patient is a 22-year-old female who appears her stated age. She is well-developed and well-nourished and appears very fatigued with mild discomfort. SKIN: Warm and dry. HEAD: Atraumatic, normocephalic. EYES: Pupils equal and round with no icterus. ENT: Without nasal bleeding or discharge. NECK: Trachea midline. CARDIOVASCULAR: S1-S2 normal rhythm, but elevated rate. RESPIRATORY: There are normal breath sounds bilaterally. GASTROINTESTINAL: Abdomen is soft without hepatosplenomegaly. EXTREMITIES: Without clubbing, cyanosis or edema. NEUROLOGIC: Awake and alert, but sleepy and uncomfortable. The patient was not examined ambulating. PSYCHIATRIC: Appropriate mood and affect with normal insight and judgment at this time. PELVIC: The emergency room doctor reports gemini pus coming from the cervical os and exquisite tenderness. Because I have the information from the CT and the ultrasound as well as the exam, pelvic exam is deferred at this time. ASSESSMENT Left tubo-ovarian abscess, pelvic inflammatory disease. PLAN IV and p.o. antibiotics per protocol. The patient will undergo repeat imaging in three days to see if there is improvement in her condition and if not, she will be prepared for surgery as was discussed with the patient and her mother. MD JERRY Gonzalez/SIMA /3:24 AM /7:13 AM
[2017-07-23] MEDS: SODIUM CHLORIDE 0.9% FLUSH 5 ML FLUSH IV FLUSH SCH ×2 (08:25→19:53)
[2017-07-23] MEDS: DOXYCYCLINE HYCLATE 100 MG CAP PO SCH ×2 (08:26→19:52)
[2017-07-23] MEDS: ALPRAZolam 0.5 MG TAB PO PRN (21:20)
[2017-07-24] VITALS: BP 99/62; PULSE 87; RESP 16; TEMP 96.9; O2SAT 99
[2017-07-24] MEDS: ACETAMINOPHEN/HYDROcodone 325 MG/5 MG TAB PO PRN ×4 (03:25→22:02)
[2017-07-24] MEDS: CLINDAMYCIN 900 MG PREMIX 50 ML IV SCH ×3 (05:03→21:53)
[2017-07-24] MEDS: SODIUM CHLORIDE 0.9% IV SCH (05:04)
[2017-07-24] MEDS: GENTAMICIN IV SCH (05:04)
[2017-07-24 06:16] LABS: AUTOMATED NEUTROPHIL # 2.7 TH/MM3 (1.8-7.7); BASOPHIL % 0.4 % (0.0-2.0); EOSINOPHIL # 0.2 TH/MM3 (0-0.4); HEMATOCRIT 29.4 % (35.0-46.0); HEMO FLAGS DIFF FINAL; LYMPH % 32.7 % (9.0-44.0); LYMPHOCYTE # 1.7 TH/MM3 (1.0-4.8); MEAN CELL VOLUME 89.8 FL (80.0-100.0); MEAN CORPUSCULAR HEMOGLOBIN 30.2 PG (27.0-34.0); MEAN CORPUSCULAR HGB CONC 33.7 % (32.0-36.0); MONO % 10.9 % (0.0-8.0); PLATELET COUNT 303 TH/MM3 (150-450); RED BLOOD COUNT 3.27 MIL/MM3 (4.00-5.30); RED CELL DISTRIBUTION WIDTH 15.1 % (11.6-17.2); WHITE BLOOD COUNT 5.1 TH/MM3 (4.0-11.0)
[2017-07-24 07:45] VITALS: BP 95/54; PULSE 82; RESP 17; TEMP 96.1; O2SAT 99
[2017-07-24] MEDS: SODIUM CHLORIDE 0.9% FLUSH 5 ML FLUSH IV FLUSH SCH ×2 (09:00→21:53)
[2017-07-24] MEDS: DOXYCYCLINE HYCLATE 100 MG CAP PO SCH ×2 (09:57→21:53)
[2017-07-24 11:52] VITALS: BP 104/52; PULSE 75; RESP 17; TEMP 96.7; O2SAT 100
[2017-07-24] MEDS: LACTATED RINGER'S 1000 ML INJ 1,000 ML IV SCH ×2 (13:27→19:15)
--- NOTE | 2017-07-24 13:56 | HHI.PR ---
Subjective Remarks Patient reports feeling "tired", and had some pain with bowel movement today. She also reports that rather than pelvic pain the discomfort is below the ribcage bilaterally. Objective Vital Signs Date Time Temp Pulse Resp B/P (MAP) Pulse Ox O2 Delivery O2 Flow Rate FiO2 07/24/17 11:52 96.7 75 17 104/52 (69) 100 07/24/17 07:45 96.1 82 17 95/54 (68) 99 07/24/17 07:24 Room Air 07/24/17 00:00 96.9 87 16 99/62 (74) 99 07/23/17 19:00 96.8 101 17 101/69 (80) 100 07/23/17 16:00 98.7 95 18 82/55 (64) 99 I/O 07/23/17 07/23/17 07/23/17 07/24/17 07/24/17 07/24/17 07:00 15:00 23:00 07:00 15:00 23:00 Intake Total 710 ml 480 ml 530 ml 480 ml Balance 710 ml 480 ml 530 ml 480 ml Intake Oral 360 ml 480 ml 480 ml 480 ml IV Total 350 ml 50 ml # Voids 1 3 3 3 # Bowel Movements 0 0 0 0 Result Diagram: 07/24/1716 07/22/172023 Objective Remarks Patient is moving more comfortably than yesterday. She is CTA and abdomen is only mildly tender in the LLQ on palpation. She is eating, voiding and ambulating well. This is also an improvement since admission. She had a bowel movement today. She is scratching herself and admits to some generalized itching when asked. Medications and IVs IV antibiotics continue as well as oral. Assessment and Plan Assessment and Plan 1. Pelvic inflammatory disease: There is subjective and objective evidence of improvement on the current antibiotic regimen. We will continue. 2. Pelvic abscesses: We typically repeat imaging after three days of antibiotics. She would not have three full days until , so a pelvic and transvaginal ultrasound is ordered. 3. Generalized itching; Will order Kerrie Peres MD Jul 24, 2017 13:56
[2017-07-24] MEDS ORDERED: diphenhydrAMINE HCL 25 MG CAP PO PRN (15:00)
[2017-07-24 15:51] VITALS: BP 92/57; PULSE 88; RESP 18; TEMP 95.6; O2SAT 100
[2017-07-24 19:21] VITALS: BP 88/50; PULSE 94; RESP 18; TEMP 97.1; O2SAT 100
[2017-07-24] MEDS: ALPRAZolam 0.5 MG TAB PO PRN (22:04)
[2017-07-25 01:20] VITALS: BP 88/54; PULSE 91; RESP 16; TEMP 97.7; O2SAT 98
[2017-07-25] MEDS: ACETAMINOPHEN/HYDROcodone 325 MG/5 MG TAB PO PRN ×3 (03:27→21:08)
[2017-07-25] MEDS: CLINDAMYCIN 900 MG PREMIX 50 ML IV SCH ×3 (05:10→21:08)
[2017-07-25] MEDS: LACTATED RINGER'S 1000 ML INJ 1,000 ML IV SCH ×2 (05:15→15:08)
[2017-07-25] MEDS: GENTAMICIN IV SCH (06:01)
[2017-07-25] MEDS: SODIUM CHLORIDE 0.9% IV SCH (06:01)
[2017-07-25 07:37] VITALS: BP 80/45; PULSE 83; RESP 19; TEMP 97.6; O2SAT 98
[2017-07-25] MEDS: DOXYCYCLINE HYCLATE 100 MG CAP PO SCH ×2 (08:29→21:08)
[2017-07-25] MEDS: SODIUM CHLORIDE 0.9% FLUSH 5 ML FLUSH IV FLUSH SCH ×2 (08:31→21:08)
[2017-07-25] MEDS ORDERED: ACETAMINOPHEN 325 MG TAB PO PRN (08:45)
[2017-07-25 11:39] VITALS: BP 84/49; PULSE 84; RESP 19; TEMP 97.8; O2SAT 99
--- NOTE | 2017-07-25 13:05 | HHI.PR ---
Subjective Remarks Patient awakened for visit. She also reports no changes overnight. Objective Vital Signs Date Time Temp Pulse Resp B/P (MAP) Pulse Ox O2 Delivery O2 Flow Rate FiO2 07/25/17 11:39 97.8 84 19 84/49 (61) 99 07/25/17 08:32 Room Air 07/25/17 07:37 97.6 83 19 80/45 (57) 98 07/25/17 07:06 Room Air 07/25/17 01:20 97.7 91 16 88/54 (65) 98 07/24/17 19:21 97.1 94 18 88/50 (63) 100 07/24/17 15:51 95.6 88 18 92/57 (69) 100 I/O 07/24/17 07/24/17 07/24/17 07/25/17 07/25/17 07/25/17 07:00 15:00 23:00 07:00 15:00 23:00 Intake Total 480 ml 800 ml 530 ml 515.625 ml Balance 480 ml 800 ml 530 ml 515.625 ml Intake Oral 480 ml 800 ml 480 ml 360 ml IV Total 50 ml 155.625 ml # Voids 3 4 2 2 # Bowel Movements 0 0 0 Result Diagram: 07/24/1716 07/22/172023 Objective Remarks Patient sleeping comfortably and awakened for my visit. Abdomen is soft. Tolerating regular diet. Less itching with Benedryl. Patient remains afebrile. Assessment and Plan Problem List: (1) TOA (tubo-ovarian abscess) ICD Codes: N70.93 - Salpingitis and oophoritis, unspecified Status: Acute Assessment and Plan 1. Pelvic inflammatory disease: There is subjective and objective evidence of improvement on the current antibiotic regimen. We will continue. 2. Pelvic abscesses: We typically repeat imaging after three days of antibiotics. She would not have three full days until , so a pelvic and transvaginal ultrasound is ordered. 3. Generalized itching; Will order Benedryl. Discussed Condition With patient Discharge Planning Tomorrow's follow up imaging will determine whether surgery is needed or whether there has been improvement. Kerrie Bruce MD Jul 25, 2017 13:05
[2017-07-25 15:35] VITALS: BP 96/59; PULSE 94; RESP 18; TEMP 96.5; O2SAT 100
[2017-07-25 20:30] VITALS: BP 92/50; PULSE 96; RESP 17; TEMP 97.5; O2SAT 98
[2017-07-25] MEDS: ALPRAZolam 0.5 MG TAB PO PRN (21:08)
[2017-07-26 00:27] VITALS: BP 91/52; PULSE 86; RESP 17; TEMP 97.2; O2SAT 98
[2017-07-26] MEDS: LACTATED RINGER'S 1000 ML INJ 1,000 ML IV SCH ×2 (01:15→07:19)
[2017-07-26 04:33] VITALS: BP 91/55; PULSE 80; RESP 16; TEMP 97.1; O2SAT 99
[2017-07-26] MEDS: CLINDAMYCIN 900 MG PREMIX 50 ML IV SCH ×2 (05:27→12:06)
[2017-07-26] MEDS: GENTAMICIN IV SCH (06:27)
[2017-07-26] MEDS: SODIUM CHLORIDE 0.9% IV SCH (06:27)
[2017-07-26] MEDS: SODIUM CHLORIDE 0.9% FLUSH 5 ML FLUSH IV FLUSH SCH (07:19)
[2017-07-26] MEDS: DOXYCYCLINE HYCLATE 100 MG CAP PO SCH (07:19)
[2017-07-26 08:00] VITALS: BP 95/64; PULSE 89; RESP 16; TEMP 97.1; O2SAT 98
[2017-07-26] MEDS: ACETAMINOPHEN/HYDROcodone 325 MG/5 MG TAB PO PRN ×2 (12:06→17:04)
[2017-07-26 12:08] VITALS: BP 106/67; PULSE 86; RESP 16; TEMP 97.5; O2SAT 100
[2017-07-26 16:15] VITALS: BP 108/58; PULSE 97; RESP 18; TEMP 97.6; O2SAT 100
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
--- NOTE | 2017-07-26 18:46 | HHI.DS ---
Discharge Summary Admission Date Jul 23, 2017 at 01:04 Admitting Diagnosis TOA; PID (1) PID (acute pelvic inflammatory disease) Diagnosis: Principal ICD Codes: N73.0 - Acute parametritis and pelvic cellulitis CBC/BMP: 07/24/17 0516 07/22/172023 Significant Findings Laboratory Tests Test 07/24/17 05:16 Red Blood Count 3.27 MIL/MM3 (4.00-5.30) Hemoglobin 9.9 GM/DL (11.6-15.3) Hematocrit 29.4 % (35.0-46.0) Monocytes (%) (Auto) 10.9 % (0.0-8.0) Imaging Pelvic ultrasound and CT on 07/22/17 showed bilateral adnexal masses and edemain the pelvis consistent with PID and tubo-ovarian abscesses. Repeat pelvic ultrasound followingh three days of IV anti-biotics shows normal left ovary and right ovary shows improved inflammatory changes and a normal appearing 2 cm simple cyst. PE at Discharge Patient alert and active. Abdomen is soft. Tolerating regular diet. Less itching with Benedryl, but still itching. Patient remains afebrile. Hospital Course Patient felt ill and fatigued on admission, She had a maximum temperature of 100 and then remained afebrile from HD #2 on. Her pelvic pain has gradually improved. Her WBC remained normal, but she is anemic with Hb 9.9 but stable. Serial imaging shows improvement in PID and resolution of the tubo-ovarian abscess. Pt Condition on Discharge: Good Discharge Disposition: Discharge Home Discharge Instructions DIET: Follow Instructions for: As Tolerated, No Restrictions Activities you can perform: Shower Only-No Bath, Pelvic Rest Activities to avoid: Bathing, Sexual Activity Additional Information Patient has my contact information to arrange a follow up appointment after completion of oral Doxycycline for 14 days total (11 days remaining). Patient is given a prescription for Tramadol 50 mg bid prn pain, #20 Patient is given a prescription for Doxycycline bid, #22. Kerrie Bruce MD Jul 26, 2017 18:46
== END 2017-07-26 20:03 | disposition home or self-care (01) | DRG 759 ==
LOC: NEPD 18:31 → NEDA 07-23 01:04 → N06A 07-23 02:39
PROVIDERS: ADMIT Obstetrics & Gynecology; ATTEND Obstetrics & Gynecology
DX: N73.0 Acute parametritis and pelvic cellulitis (principal); F31.9 Bipolar disorder, unspecified; N70.93 Salpingitis and oophoritis, unspecified; F43.10 Post-traumatic stress disorder, unspecified; Z72.0 Tobacco use; Z87.440 Personal history of urinary (tract) infections; N92.6 Irregular menstruation, unspecified; L29.9 Pruritus, unspecified
CPT/HCPCS: 74177; 76856; 80053; 81001; 83605; 83690; 84703; 85025; 87086; 87210; 87491; 87591; 93975; 96361; 96365; 96367; 96372; 96375; J0500; J0694; J0696; J1580; J2270; J7030; J7050; J7120; Q9963; Q9967

== ENCOUNTER 2017-07-31 02:30 | Emergency (ER) | payer OTHER ==
[~2017-07-31] VITALS: Ht 160 cm; Wt 55.0 kg
[2017-07-31 02:46] VITALS: BP 128/79; PULSE 122; RESP 16; TEMP 98.2; O2SAT 99
[2017-07-31] MEDS ORDERED: SODIUM CHLOR 0.9% 1000 ML INJ 1,000 ML IV SCH (02:49)
[2017-07-31] MEDS ORDERED: LORazepam 2 MG/ML VIAL IV PUSH ONE (03:00)
--- NOTE | 2017-07-31 03:22 | PD ---
HPI Chief Complaint: Alcohol/Drug Intoxication Time Seen by Provider: 02:45 Travel History International Travel<30 days: No Contact w/Intl Traveler<30days: No Traveled to known affect area: No History of Present Illness HPI Examined in the presence of a female nurse. 22-year-old female presents under [place] act initiated by the Police Department. According to her paperwork the patient admitted to taking methamphetamines earlier in the day and she was having hallucinations. Upon examination of the patient she appears to be primarily responding to internal stimuli and is unable to provide additional history. She is noted to be tachycardic. PFSH Past Medical History ADHD: No Autoimmune Disease: No Blood Disorders: No Bipolar Disorder: Yes Anxiety: Yes Depression: Yes Cancer: No Cardiovascular Problems: No Developmental Delay: No Diabetes: No Diminished Hearing: No Gastrointestinal Disorders: Yes (constipation ) Genitourinary: No Headaches: No Heparin Induced Thrombocytopen: No Musculoskeletal: No Neurologic: No Psychiatric: Yes (PTSD) Respiratory: No Immunizations Current: No Migraines: Yes Schizophrenia: Yes Seizures: No Sickle Cell Disease: No Thyroid Disease: No Ulcer: No Menopausal: No : 1 Para: 0 Miscarriage: 1 Past Surgical History Other Surgery: No Social History Alcohol Use: No (pt denies) Tobacco Use: Yes Substance Use: Yes (Meth, Marijuana, IVDA) Allergies-Medications (Allergen,Severity, Reaction): Coded Allergies: No Known Allergies (Verified Allergy, Unknown, 07/31/17) Reported Meds & Prescriptions Reported Meds & Active Scripts Active Review of Systems ROS Limitations: Clinical Condition Except as stated in HPI: all other systems reviewed are Neg Physical Exam Exam Limitations: Clinical Condition Narrative GENERAL: Disheveled female who is in no acute distress. SKIN: Warm and dry. HEAD: Atraumatic. Normocephalic. EYES: Pupils equal and round. No scleral icterus. No injection or drainage. ENT: No nasal bleeding or discharge. Mucous membranes pink and moist. NECK: Trachea midline. No JVD. CARDIOVASCULAR: Regular rate and rhythm. No murmur appreciated. RESPIRATORY: No accessory muscle use. Clear to auscultation. Breath sounds equal bilaterally. GASTROINTESTINAL: Abdomen soft, non-tender, nondistended. Hepatic and splenic margins not palpable. MUSCULOSKELETAL: No obvious deformities. No clubbing. No cyanosis. No edema. NEUROLOGICAL: Awake and alert. No obvious cranial nerve deficits. Motor grossly within normal limits. PSYCHIATRIC: Insight and judgment appear limited. Responding to internal stimulation. Data Data Last Documented VS Vital Signs Date Time Temp Pulse Resp B/P (MAP) Pulse Ox O2 Delivery O2 Flow Rate FiO2 07/31/17 02:46 98.2 122 16 128/79 (95) 99 Orders Orders Complete Blood Count With Diff (07/31/17 02:37) Comprehensive Metabolic Panel (07/31/17 02:37) Ed Urine Pregnancytest Poc (07/31/17 02:37) Psych Screen (07/31/17 02:37) Drug Screen, Random Urine (07/31/17 02:37) Alcohol (Ethanol) (07/31/17 02:37) Lorazepam Inj (Ativan Inj) (07/31/17 03:00) Sodium Chlor 0.9% 1000 Ml Inj (Ns 1000 M (07/31/17 02:49) Labs Laboratory Tests Test 07/31/17 03:10 07/31/17 03:40 07/31/17 03:57 Blood Urea Nitrogen 18 MG/DL Creatinine 0.69 MG/DL Random Glucose 83 MG/DL Total Protein 8.2 GM/DL Albumin 3.6 GM/DL Calcium Level 9.1 MG/DL Alkaline Phosphatase 78 U/L Aspartate Amino Transf (AST/SGOT) 61 U/L Alanine Aminotransferase (ALT/SGPT) 54 U/L Total Bilirubin 0.5 MG/DL Sodium Level 136 MEQ/L Potassium Level 4.0 MEQ/L Chloride Level 102 MEQ/L Carbon Dioxide Level 25.5 MEQ/L Anion Gap 9 MEQ/L Estimat Glomerular Filtration Rate 108 ML/MIN Ethyl Alcohol Level LESS THAN 3 MG/DL Urine Opiates Screen NEG Urine Barbiturates Screen NEG Urine Amphetamines Screen POS Urine Benzodiazepines Screen NEG Urine Cocaine Screen NEG Urine Cannabinoids Screen POS White Blood Count 6.8 TH/MM3 Red Blood Count 3.24 MIL/MM3 Hemoglobin 9.6 GM/DL Hematocrit 28.2 % Mean Corpuscular Volume 86.9 FL Mean Corpuscular Hemoglobin 29.6 PG Mean Corpuscular Hemoglobin Concent 34.1 % Red Cell Distribution Width 15.4 % Platelet Count 396 TH/MM3 Mean Platelet Volume 7.2 FL Neutrophils (%) (Auto) 55.4 % Lymphocytes (%) (Auto) 30.4 % Monocytes (%) (Auto) 13.0 % Eosinophils (%) (Auto) 0.8 % Basophils (%) (Auto) 0.4 % Neutrophils # (Auto) 3.8 TH/MM3 Lymphocytes # (Auto) 2.1 TH/MM3 Monocytes # (Auto) 0.9 TH/MM3 Eosinophils # (Auto) 0.1 TH/MM3 Basophils # (Auto) 0.0 TH/MM3 CBC Comment DIFF FINAL Differential Comment MDM Medical Decision Making Medical Screen Exam Complete: Yes Emergency Medical Condition: Yes Medical Record Reviewed: Yes Differential Diagnosis Substance induced mood disorder, acute psychosis, schizophrenia, schizoaffective disorder Narrative Course 22-year-old female presents under [place] act for evaluation. She appears acutely decompensated, responding to internal stimuli, providing minimal history. Per her paperwork the patient has been using methamphetamines. She would benefit from psychiatric screening. Plan is for basic lab work, IV fluids. Mental health screening discussed with the patient. Psychiatric screen ordered. Lab work has been reviewed. Mildly elevated liver enzymes, chronic anemia. She is medically cleared for psychiatric disposition. Diagnosis Primary Impression: Drug-induced mood disorder Gavin Dillard Jul 31, 2017 03:22
[2017-07-31 03:45] LABS: ALKALINE PHOSPHATASE 78 U/L (45-117); ALT (GPT) 54 U/L (9-42); TOTAL BILIRUBIN ADULT 0.5 MG/DL (0.2-1.0)
[2017-07-31 03:48] LABS: ANION GAP 9 MEQ/L (5-15); AST (GOT) 61 U/L (16-38); BICARBONATE 25.5 MEQ/L (21.0-32.0); BLOOD UREA NITROGEN 18 MG/DL (7-18); CHLORIDE 102 MEQ/L (98-107); GLOMERULAR FILTRATION RATE 108 ML/MIN (>89); SODIUM (NA) 136 MEQ/L (136-145)
[2017-07-31 03:50] LABS: ALCOHOL LESS THAN 3 MG/DL (0-5)
[2017-07-31 04:18] LABS: AUTOMATED NEUTROPHIL # 3.8 TH/MM3 (1.8-7.7); BASOPHIL % 0.4 % (0.0-2.0); EOSINOPHIL # 0.1 TH/MM3 (0-0.4); EOSINOPHIL % 0.8 % (0.0-4.0); HEMATOCRIT 28.2 % (35.0-46.0); HEMO FLAGS DIFF FINAL; LYMPH % 30.4 % (9.0-44.0); LYMPHOCYTE # 2.1 TH/MM3 (1.0-4.8); MEAN CELL VOLUME 86.9 FL (80.0-100.0); MEAN CORPUSCULAR HEMOGLOBIN 29.6 PG (27.0-34.0); MEAN CORPUSCULAR HGB CONC 34.1 % (32.0-36.0); NEUT % 55.4 % (16.0-70.0); PLATELET COUNT 396 TH/MM3 (150-450); RED BLOOD COUNT 3.24 MIL/MM3 (4.00-5.30); RED CELL DISTRIBUTION WIDTH 15.4 % (11.6-17.2); WHITE BLOOD COUNT 6.8 TH/MM3 (4.0-11.0)
[2017-07-31] MEDS ORDERED: LORazepam 1 MG TAB PO ONE (07:30)
[2017-07-31 07:55] VITALS: BP_SYST 120; BP_SYST 128; BP_DIAS 77; PULSE 89; RESP 17; TEMP 97.8; O2SAT 98
[2017-07-31] MEDS ORDERED: OLANZapine IM 10 MG VIAL IM ONE (08:15)
[2017-07-31 10:09] VITALS: BP 90/50; PULSE 98; RESP 18; O2SAT 100
[2017-07-31 15:18] VITALS: BP 90/50; PULSE 92; RESP 18; O2SAT 100
[2017-07-31 18:09] VITALS: BP 96/51; PULSE 120; RESP 20; O2SAT 98
[2017-08-01 05:45] VITALS: RESP 18
[2017-08-01 09:31] VITALS: BP 86/45; PULSE 94; RESP 16; TEMP 98.4; O2SAT 98
== END 2017-08-01 12:10 | disposition short-term general hospital (02) ==
LOC: NEPD 02:30 → NEPJ 08-01 12:10
DX: F15.94 Other stimulant use, unspecified with stimulant-induced mood disorder (principal); R00.0 Tachycardia, unspecified; F31.9 Bipolar disorder, unspecified; F43.10 Post-traumatic stress disorder, unspecified; F20.9 Schizophrenia, unspecified; Z72.0 Tobacco use
CPT/HCPCS: 80053; 80307; 84703; 85025; 96361; 96372; 96374; 99285; J2060; J7030

== ENCOUNTER 2017-12-01 23:56 | Emergency (ER) | payer OTHER ==
[~2017-12-01] VITALS: Ht 157.5 cm; Wt 52.0 kg
[2017-12-02 00:09] VITALS: BP 139/86; PULSE 78; RESP 16; TEMP 98.6; O2SAT 99
--- NOTE | 2017-12-02 00:12 | PD ---
HPI Chief Complaint: Psychiatric Symptoms Time Seen by Provider: 00:06 Travel History International Travel<30 days: No Contact w/Intl Traveler<30days: No Traveled to known affect area: No History of Present Illness HPI Patient is a 22-year-old female presenting to emergency department under Kurtz act for psychiatric evaluation. According to the police matron that brought her in, patient was found standing on a bridge, looking over the side. She was acting abnormally and was not forthcoming with answering his questions so he placed her under Kurtz act for her own safety. Patient reports that she has had relationship issues at home and has been out wandering for the last 3 days. She states that she has not eaten anything in a few days as well. Patient is not offering any further information. She denies any physical complaints at this time. She states that she was on the bridge letting her feet rest because she does not want to walk all the way back to [place] from [place]. Symptom onset is unknown, symptom severity is unknown, unknown aggravating or alleviating factors. PFSH Past Medical History ADHD: No Autoimmune Disease: No Blood Disorders: No Bipolar Disorder: Yes Weight (Kg): 3 Anxiety: Yes Depression: Yes Cancer: No Cardiovascular Problems: No Developmental Delay: No Diabetes: No Diminished Hearing: No Gastrointestinal Disorders: Yes (constipation ) Genitourinary: No Headaches: No Heparin Induced Thrombocytopen: No Musculoskeletal: No Neurologic: No Psychiatric: Yes (PTSD) Respiratory: No Immunizations Current: Yes Migraines: Yes Schizophrenia: Yes Seizures: No Sickle Cell Disease: No Thyroid Disease: No Ulcer: No ?: Not Menopausal: No : 1 Para: 0 Miscarriage: 1 Past Surgical History Surgical History: No Previous Surgery Other Surgery: No Social History Alcohol Use: No Tobacco Use: Yes Substance Use: No (HX Meth, Marijuana, IVDA) Allergies-Medications (Allergen,Severity, Reaction): Coded Allergies: No Known Allergies (Verified Allergy, Unknown, 12/02/17) Reported Meds & Prescriptions Reported Meds & Active Scripts Active No Active Prescriptions or Reported Medications Review of Systems ROS Limitations: Uncooperative, Refused Except as stated in HPI: all other systems reviewed are Neg Physical Exam Narrative GENERAL: Well-developed, well-nourished, alert female. Presenting in no acute distress. SKIN: Warm and dry. HEAD: Atraumatic. Normocephalic. EYES: Pupils equal and round. No scleral icterus. No injection or drainage. ENT: No nasal bleeding or discharge. Mucous membranes pink and moist. NECK: Trachea midline. No JVD. CARDIOVASCULAR: Regular rate and rhythm. RESPIRATORY: No accessory muscle use. Clear to auscultation. Breath sounds equal bilaterally. GASTROINTESTINAL: Abdomen soft, non-tender, nondistended. Hepatic and splenic margins not palpable. MUSCULOSKELETAL: Extremities without clubbing, cyanosis, or edema. No obvious deformities. NEUROLOGICAL: Awake and alert. No obvious cranial nerve deficits. Motor grossly within normal limits. Five out of 5 muscle strength in the arms and legs. Normal speech. PSYCHIATRIC: Flat mood and affect; insight and judgment appears impaired Data Data Last Documented VS Vital Signs Date Time Temp Pulse Resp B/P (MAP) Pulse Ox O2 Delivery O2 Flow Rate FiO2 12/02/17 00:09 98.6 78 16 139/86 (103) 99 Room Air Orders Orders Complete Blood Count With Diff (12/02/17 00:06) Comprehensive Metabolic Panel (12/02/17 00:06) Thyroid Stimulating Hormone (12/02/17 00:06) Urinalysis - C+S If Indicated (12/02/17 00:06) Ed Urine Pregnancytest Poc (12/02/17 00:06) Psych Screen (12/02/17 00:06) Drug Screen, Random Urine (12/02/17 00:06) Alcohol (Ethanol) (12/02/17 00:06) Salicylates (Aspirin) (12/02/17 00:06) Tylenol (Acetaminophen) (12/02/17 00:06) Potassium Chloride (Kcl) (12/02/17 02:00) Labs Laboratory Tests Test 12/02/17 00:37 12/02/17 01:12 White Blood Count 6.1 TH/MM3 Red Blood Count 4.41 MIL/MM3 Hemoglobin 13.4 GM/DL Hematocrit 38.9 % Mean Corpuscular Volume 88.1 FL Mean Corpuscular Hemoglobin 30.3 PG Mean Corpuscular Hemoglobin Concent 34.4 % Red Cell Distribution Width 17.1 % Platelet Count 288 TH/MM3 Mean Platelet Volume 8.5 FL Neutrophils (%) (Auto) 48.1 % Lymphocytes (%) (Auto) 40.7 % Monocytes (%) (Auto) 9.1 % Eosinophils (%) (Auto) 1.3 % Basophils (%) (Auto) 0.8 % Neutrophils # (Auto) 2.9 TH/MM3 Lymphocytes # (Auto) 2.5 TH/MM3 Monocytes # (Auto) 0.6 TH/MM3 Eosinophils # (Auto) 0.1 TH/MM3 Basophils # (Auto) 0.0 TH/MM3 CBC Comment DIFF FINAL Differential Comment Salicylates Level LESS THAN 1.7 MG/DL Blood Urea Nitrogen 17 MG/DL Creatinine 0.70 MG/DL Random Glucose 96 MG/DL Albumin 4.2 GM/DL Calcium Level 9.3 MG/DL Aspartate Amino Transf (AST/SGOT) 38 U/L Alanine Aminotransferase (ALT/SGPT) 58 U/L Sodium Level 136 MEQ/L Potassium Level 3.2 MEQ/L Chloride Level 100 MEQ/L Carbon Dioxide Level 24.1 MEQ/L Anion Gap 12 MEQ/L Estimat Glomerular Filtration Rate 107 ML/MIN Acetaminophen Level LESS THAN 2.0 MCG/ML Ethyl Alcohol Level LESS THAN 3 MG/DL MDM Medical Decision Making Medical Screen Exam Complete: Yes Emergency Medical Condition: Yes Interpretation(s) Laboratory Tests Test 12/02/17 00:37 12/02/17 01:12 White Blood Count 6.1 TH/MM3 Red Blood Count 4.41 MIL/MM3 Hemoglobin 13.4 GM/DL Hematocrit 38.9 % Mean Corpuscular Volume 88.1 FL Mean Corpuscular Hemoglobin 30.3 PG Mean Corpuscular Hemoglobin Concent 34.4 % Red Cell Distribution Width 17.1 % Platelet Count 288 TH/MM3 Mean Platelet Volume 8.5 FL Neutrophils (%) (Auto) 48.1 % Lymphocytes (%) (Auto) 40.7 % Monocytes (%) (Auto) 9.1 % Eosinophils (%) (Auto) 1.3 % Basophils (%) (Auto) 0.8 % Neutrophils # (Auto) 2.9 TH/MM3 Lymphocytes # (Auto) 2.5 TH/MM3 Monocytes # (Auto) 0.6 TH/MM3 Eosinophils # (Auto) 0.1 TH/MM3 Basophils # (Auto) 0.0 TH/MM3 CBC Comment DIFF FINAL Differential Comment Salicylates Level LESS THAN 1.7 MG/DL Blood Urea Nitrogen 17 MG/DL Creatinine 0.70 MG/DL Random Glucose 96 MG/DL Albumin 4.2 GM/DL Calcium Level 9.3 MG/DL Aspartate Amino Transf (AST/SGOT) 38 U/L Alanine Aminotransferase (ALT/SGPT) 58 U/L Sodium Level 136 MEQ/L Potassium Level 3.2 MEQ/L Chloride Level 100 MEQ/L Carbon Dioxide Level 24.1 MEQ/L Anion Gap 12 MEQ/L Estimat Glomerular Filtration Rate 107 ML/MIN Acetaminophen Level LESS THAN 2.0 MCG/ML Ethyl Alcohol Level LESS THAN 3 MG/DL Vital Signs Date Time Temp Pulse Resp B/P (MAP) Pulse Ox O2 Delivery O2 Flow Rate FiO2 12/02/17 00:09 98.6 78 16 139/86 (103) 99 Room Air Differential Diagnosis Mood disorder versus psychosis versus substance abuse versus metabolic abnormality versus other Narrative Course Patient is a 22-year-old female presented to the emergency department under Kurtz act for psychiatric evaluation. Patient is not forthcoming with information. Mental health screening discussed with the patient. Psychiatric screen ordered. Her vital signs are stable, labs ordered and pending. Labs reviewed, potassium 3.2, or replacement ordered. Labs are otherwise unremarkable. Urinalysis is pending however patient is medically cleared for psychiatric evaluation at this time. Diagnosis Primary Impression: Medical clearance for psychiatric admission Scripts No Active Prescriptions or Reported Meds Condition: Stable Clair Zafar Dec 02, 2017 00:12
[2017-12-02 01:35] LABS: AUTOMATED NEUTROPHIL # 2.9 TH/MM3 (1.8-7.7); BASOPHIL % 0.8 % (0.0-2.0); EOSINOPHIL # 0.1 TH/MM3 (0-0.4); EOSINOPHIL % 1.3 % (0.0-4.0); HEMATOCRIT 38.9 % (35.0-46.0); HEMOGLOBIN 13.4 GM/DL (11.6-15.3); LYMPH % 40.7 % (9.0-44.0); LYMPHOCYTE # 2.5 TH/MM3 (1.0-4.8); MEAN CELL VOLUME 88.1 FL (80.0-100.0); MEAN CORPUSCULAR HEMOGLOBIN 30.3 PG (27.0-34.0); MEAN CORPUSCULAR HGB CONC 34.4 % (32.0-36.0); MEAN PLATELET VOLUME 8.5 FL (7.0-11.0); MONO % 9.1 % (0.0-8.0); MONOCYTE # 0.6 TH/MM3 (0-0.9); NEUT % 48.1 % (16.0-70.0); PLATELET COUNT 288 TH/MM3 (150-450); RED BLOOD COUNT 4.41 MIL/MM3 (4.00-5.30); RED CELL DISTRIBUTION WIDTH 17.1 % (11.6-17.2); WHITE BLOOD COUNT 6.1 TH/MM3 (4.0-11.0)
[2017-12-02 01:57] LABS: ALBUMIN 4.2 GM/DL (3.4-5.0); ALT (GPT) 58 U/L (9-42); AST (GOT) 38 U/L (16-38); BICARBONATE 24.1 MEQ/L (21.0-32.0); BLOOD UREA NITROGEN 17 MG/DL (7-18); CALCIUM 9.3 MG/DL (8.5-10.1); CHLORIDE 100 MEQ/L (98-107); GLOMERULAR FILTRATION RATE 107 ML/MIN (>89); GLUCOSE,RANDOM 96 MG/DL (74-106); SODIUM (NA) 136 MEQ/L (136-145)
[2017-12-02 01:59] LABS: ACETAMINOPHEN LESS THAN 2.0 MCG/ML (10.0-30.0)
[2017-12-02] MEDS ORDERED: POTASSIUM CHLORIDE 10 MEQ CONTROLLED RELEASE TAB PO ONE (02:00)
[2017-12-02 02:06] LABS: ALKALINE PHOSPHATASE 69 U/L (45-117); TOTAL BILIRUBIN ADULT 1.3 MG/DL (0.2-1.0); TOTAL PROTEIN 8.6 GM/DL (6.4-8.2)
[2017-12-02 19:22] LABS: BILIRUBIN, URINE NEG (NEG); BLOOD, URINE NEG (NEG); GLUCOSE,URINE NEG (NEG); KETONE, URINE NEG (NEG); MUCUS URINE MANY /lpf (OCC); NITRITE,URINE NEG (NEG); PH, URINE 5.5 (5.0-8.5); SQUAMOUS EPITHELIAL CELL URINE 6 /hpf (0-5); URINE COLOR YELLOW (YELLW/STRAW); URINE LEUKOCYTE ESTERASE NEG (NEG)
[2017-12-02 19:25] VITALS: BP 95/51; PULSE 67; RESP 18; TEMP 97.8; O2SAT 99
[2017-12-03 00:35] VITALS: BP 106/55; PULSE 58; RESP 18
[2017-12-03 04:51] VITALS: BP 102/55; PULSE 79; RESP 18; TEMP 98; O2SAT 100
--- NOTE | 2017-12-03 09:03 | PD ---
Physical Exam Date Seen by Provider: Dec 03, 2017 Time Seen by Provider: 09:01 Narrative For full H&P please see my previous note. Data Data Last Documented VS Vital Signs Date Time Temp Pulse Resp B/P (MAP) Pulse Ox O2 Delivery O2 Flow Rate FiO2 12/03/17 04:51 98.0 79 18 102/55 (71) 100 Room Air Orders Orders Complete Blood Count With Diff (12/02/17 00:06) Comprehensive Metabolic Panel (12/02/17 00:06) Thyroid Stimulating Hormone (12/02/17 00:06) Urinalysis - C+S If Indicated (12/02/17 00:06) Ed Urine Pregnancytest Poc (12/02/17 00:06) Psych Screen (12/02/17 00:06) Drug Screen, Random Urine (12/02/17 00:06) Alcohol (Ethanol) (12/02/17 00:06) Salicylates (Aspirin) (12/02/17 00:06) Tylenol (Acetaminophen) (12/02/17 00:06) Potassium Chloride (Kcl) (12/02/17 02:00) Diet Regular Basic (12/02/17 Breakfast) Diet Regular Basic (12/02/17 Dinner) Diet Regular Basic (12/03/17 Breakfast) Ed Discharge Order (12/03/17 09:01) Labs Laboratory Tests Test 12/02/17 00:37 12/02/17 01:12 12/02/17 18:35 White Blood Count 6.1 TH/MM3 Red Blood Count 4.41 MIL/MM3 Hemoglobin 13.4 GM/DL Hematocrit 38.9 % Mean Corpuscular Volume 88.1 FL Mean Corpuscular Hemoglobin 30.3 PG Mean Corpuscular Hemoglobin Concent 34.4 % Red Cell Distribution Width 17.1 % Platelet Count 288 TH/MM3 Mean Platelet Volume 8.5 FL Neutrophils (%) (Auto) 48.1 % Lymphocytes (%) (Auto) 40.7 % Monocytes (%) (Auto) 9.1 % Eosinophils (%) (Auto) 1.3 % Basophils (%) (Auto) 0.8 % Neutrophils # (Auto) 2.9 TH/MM3 Lymphocytes # (Auto) 2.5 TH/MM3 Monocytes # (Auto) 0.6 TH/MM3 Eosinophils # (Auto) 0.1 TH/MM3 Basophils # (Auto) 0.0 TH/MM3 CBC Comment DIFF FINAL Differential Comment Salicylates Level LESS THAN 1.7 MG/DL Blood Urea Nitrogen 17 MG/DL Creatinine 0.70 MG/DL Random Glucose 96 MG/DL Total Protein 8.6 GM/DL Albumin 4.2 GM/DL Calcium Level 9.3 MG/DL Alkaline Phosphatase 69 U/L Aspartate Amino Transf (AST/SGOT) 38 U/L Alanine Aminotransferase (ALT/SGPT) 58 U/L Total Bilirubin 1.3 MG/DL Sodium Level 136 MEQ/L Potassium Level 3.2 MEQ/L Chloride Level 100 MEQ/L Carbon Dioxide Level 24.1 MEQ/L Anion Gap 12 MEQ/L Estimat Glomerular Filtration Rate 107 ML/MIN Thyroid Stimulating Hormone 3rd Gen 1.660 uIU/ML Acetaminophen Level LESS THAN 2.0 MCG/ML Ethyl Alcohol Level LESS THAN 3 MG/DL Urine Color YELLOW Urine Turbidity HAZY Urine pH 5.5 Urine Specific [place] 1.034 Urine Protein TRACE mg/dL Urine Glucose (UA) NEG mg/dL Urine Ketones NEG mg/dL Urine Occult Blood NEG Urine Nitrite NEG Urine Bilirubin NEG Urine Urobilinogen 2.0 MG/DL Urine Leukocyte Esterase NEG Urine RBC 1 /hpf Urine WBC 1 /hpf Urine Squamous Epithelial Cells 6 /hpf Urine Mucus MANY /lpf Microscopic Urinalysis Comment CULT NOT INDICATED Urine Opiates Screen NEG Urine Barbiturates Screen NEG Urine Amphetamines Screen POS Urine Benzodiazepines Screen NEG Urine Cocaine Screen NEG Urine Cannabinoids Screen NEG MDM Medical Record Reviewed: Yes Supervised Visit with PHIL: No Narrative Course Patient is 22-year-old female that presented to the emergency department for psychiatric evaluation under Jerardo epstein. Patient was medically cleared in the emergency department, she was then evaluated by the psychiatrist. Kurtz act was lifted, patient was diagnosed with amphetamine use disorder. She is to follow-up with [facility]. She is encouraged to avoid use of illicit substances. Patient stable for discharge. Diagnosis Primary Impression: Amphetamine use disorder, moderate Referrals: [facility] Patient Instructions: General Instructions, Methamphetamine Abuse (ED) Additional Instruction: Avoid use of illicit substances Follow-up with your primary doctor Follow-up with [facility] Med/Other Pt SpecificInfo: No Change to Meds Scripts No Active Prescriptions or Reported Meds Disposition: 01 DISCHARGE HOME Condition: Stable Clair Zafar Dec 03, 2017 09:03
[2017-12-03 09:43] VITALS: BP 98/70; PULSE 68; RESP 20; TEMP 98.6; O2SAT 99
--- NOTE | 2017-12-03 11:48 | PD.PSY.CON ---
Provisional Diagnosis Admission Date [place] I. Amphetamine use disorder, substance-induced mood disorder [place] II. Unspecified personality disorder [place] III. No medical history History of Present Illness Service Psychiatry Consult Requested By ER Reason for Consult Under [employer] act Primary Care Physician No Primary Care Physician HPI The patient is a 22-year-old single woman, domiciled with her mother in [place], unemployed, with psychiatric history of amphetamine use disorder, personality disorder, no previous psychiatric hospitalizations, no previous suicide attempts, no significant medical history, who presents to emergency department under [employer] act for psychiatric evaluation. According to the vice squad police officer that brought her in, patient was found standing on a bridge, looking over the side. She was acting abnormally and was not forthcoming with answering his questions so he placed her under [employer] act for her own safety. Patient reports that she has had relationship issues at home and has been out wandering for the last 3 days. She states that she has not eaten anything in a few days as well. Patient is not offering any further information. She denies any physical complaints at this time. She states that she was on the bridge letting her feet rest because she does not want to walk all the way back to [place] from [place]. On psychiatric evaluation today the patient is calm , superficially cooperative, irritable. She says that yesterday she was walking back home without shoes, the police stopped her and ask her what she was doing "I did not want to answer, and they invented all is written in the [employer] act". The patient denies that she ever made a suicidal statement. She also denies using drugs, I confronted her about the U tox, but she says that she does not understand how she can be positive for amphetamine. She denies suicidal and was ideation, she denies visual and auditory hallucinations. Her mother was contacted to check if the patient is safe to be discharged, the mother agree with this plan. Review of Systems Constitutional: DENIES: Diaphoretic episodes, Fatigue, Fever, Weight gain, Weight loss, Chills, Dizziness, Change in appetite, Night Sweats Endocrine: DENIES: Abnorml menstrual pattern, Heat/cold intolerance, Polydipsia , Polyuria, Polyphagia Eyes: DENIES: Blurred vision, Diplopia, Eye inflammation, Eye pain, Vision loss , Photosensitivity, Double Vision Respiratory: DENIES: Apneas, Cough, Snoring, Wheezing, Hemoptysis, Sputum production, Shortness of breath Cardiovascular: DENIES: Chest pain, Palpitations, Syncope, Dyspnea on Exertion , PND, Lower Extremity Edema, Orthopnea, Claudication Gastrointestinal: DENIES: Abdominal pain, Black stools, Bloody stools, Constipation, Diarrhea, Nausea, Vomiting, Difficulty Swallowing, Anorexia Genitourinary: DENIES: Abnormal vaginal bleeding, Dysmenorrhea, Dyspareunia, Sexual dysfunction, Urinary frequency, Urinary incontinence, Urgency, Hematuria , Dysuria, Nocturia, Vaginal discharge Musculoskeletal: DENIES: Joint pain, Muscle aches, Stiffness, Joint Swelling, Back pain, Neck pain Integumentary: DENIES: Abnormal pigmentation, Pruritus, Rash, Nail changes, Breast masses, Breast skin changes, Nipple discharge Hematologic/lymphatic: DENIES: Bruising, Lymphadenopathy Immunologic/allergic: DENIES: Eczema, Urticaria Psychiatric: DENIES: Anxiety, Confusion, Mood changes, Depression, Hallucinations, Agitation, Suicidal Ideation, Homicidal Ideation, Delusions Past Family Social History Coded Allergies: No Known Allergies (Verified Allergy, Unknown, 12/02/17) No Active Prescriptions or Reported Meds Physical Exam Vital Signs Vital Signs Date Time Temp Pulse Resp B/P (MAP) Pulse Ox O2 Delivery O2 Flow Rate FiO2 12/03/17 10:21 12/03/17 09:43 98.6 68 20 99 12/03/17 04:51 Room Air Lab Results Test 12/02/17 18:35 Urine Color YELLOW Urine Turbidity HAZY Urine pH 5.5 Urine Specific [place] 1.034 Urine Protein TRACE mg/dL Urine Glucose (UA) NEG mg/dL Urine Ketones NEG mg/dL Urine Occult Blood NEG Urine Nitrite NEG Urine Bilirubin NEG Urine Urobilinogen 2.0 MG/DL Urine Leukocyte Esterase NEG Urine RBC 1 /hpf Urine WBC 1 /hpf Urine Squamous Epithelial Cells 6 /hpf Urine Mucus MANY /lpf Microscopic Urinalysis Comment CULT NOT INDICATED Urine Opiates Screen NEG Urine Barbiturates Screen NEG Urine Amphetamines Screen POS Urine Benzodiazepines Screen NEG Urine Cocaine Screen NEG Urine Cannabinoids Screen NEG Mental Status Examination Appearance: Appropriate Consciousness: Alert Orientation: x4 Motor Activity: Normal gait Speech: Unremarkable Language: Adequate Fund of Knowledge: Adequate Attention and Concentration: Adequate Memory: Unremarkable Mood: Appropriate Affect: Appropriate Thought Process & Associations: Intact Thought Content: Appropriate Hallucination Type: None Delusion Type: None Suicidal Ideation: No Suicidal Plan: No Suicidal Intention: No Homicidal Ideation: No Homicidal Plan: No Homicidal Intention: No Insight: Adequate Judgment: Adequate Assessment & Plan Problem List: (1) Substance-induced psychotic disorder with hallucinations ICD Codes: F19.951 - Other psychoactive substance use, unspecified with psychoactive substance-induced psychotic disorderwith hallucinations Status: Acute Assessment & Plan: On psychiatric evaluation today the patient does not present any neuropsychiatric symptoms that require an immediate psychiatric intervention. The patient denies depression, denies anxiety, denies judith, denies psychosis. The patient denies suicidal and homicidal ideation, she denies visual and auditory hallucinations. Her recent suicidal statement to the police was most probably the result of acute substance intoxication, also cluster B traits are evident during that evaluation, she does not meet criteria for involuntary psychiatric admission at this moment. Kurtz act will be lifted Assessment & Plan Estimated LOS: Richard Stone MD Dec 03, 2017 11:48
== END 2017-12-03 10:26 | disposition home or self-care (01) ==
LOC: NEPD 23:56 → NEPJ 12-03 10:26
DX: F15.94 Other stimulant use, unspecified with stimulant-induced mood disorder (principal); F41.9 Anxiety disorder, unspecified; F31.9 Bipolar disorder, unspecified; F43.10 Post-traumatic stress disorder, unspecified; F20.9 Schizophrenia, unspecified; Z72.0 Tobacco use
CPT/HCPCS: 80053; 80307; 81001; 84443; 84703; 85025; 99284